=== PATIENT | male | born 1980 | race Caucasian/White ===

== ENCOUNTER 2017-05-27 17:30 | Emergency (ER) | payer OTHER ==
[2017-05-27 17:40] VITALS: RESP 16
[2017-05-27] MEDS ORDERED: NS 1,000 ML IV ONE (17:49)
--- NOTE | 2017-05-27 17:49 | EDPHY ---
H & P Stated Complaint: Lightheaded, weak and dizzy since yesterday Time Seen by Provider: 05/27/17 17:46 HPI/ROS: CHIEF COMPLAINT: Lightheadedness, sore throat, presyncope HISTORY OF PRESENT ILLNESS: The patient presents to the emergency department with lightheadedness, sore throat and presyncope. The patient has been struggling with an upper respiratory infection for the past several weeks. He reports symptoms of a mild dry cough. He currently denies any pleuritic chest pain or dyspnea. The patient complains of a mild sore throat. He did undergo 1 round of antibiotics several months ago. The patient denies any asymmetric calf pain or swelling. The patient denies significant past medical history. He denies any increasing stress or insomnia. The patient has no complaints of acute headache, numbness or weakness. REVIEW OF SYSTEMS: A comprehensive 10 point review of systems is otherwise negative aside from elements mentioned in the history of present illness. Source: Patient Exam Limitations: No limitations - Personal History Current Tetanus Diphtheria and Acellular Pertussis (TDAP): Unsure - Medical/Surgical History Hx Asthma: No Hx Chronic Respiratory Disease: No Hx Diabetes: No Hx Cardiac Disease: No Hx Renal Disease: No Hx Cirrhosis: No Hx Alcoholism: No Hx HIV/AIDS: No Hx Splenectomy or Spleen Trauma: No Other PMH: Denies - Social History Smoking Status: Never smoked - Physical Exam Exam: General Appearance: Alert, no distress Eyes: Pupils equal and round no pallor or injection ENT, Mouth: Mucous membranes moist Respiratory: There are no retractions, lungs are clear to auscultation Cardiovascular: Regular rate and rhythm Gastrointestinal: Abdomen is soft and nontender, no masses, bowel sounds normal Neurological: A&O, normal motor function, normal sensory exam, normal cranial nerves Skin: Warm and dry, no rashes Musculoskeletal: Neck is supple nontender Extremities: symmetrical, full range of motion Constitutional: Initial Vital Signs Temperature (C) 36.6 C 05/27/17 17:38 Heart Rate 87 05/27/17 17:38 Respiratory Rate 16 05/27/17 17:38 Blood Pressure 133/86 H 05/27/17 17:38 O2 Sat (%) 99 05/27/17 17:38 O2 Delivery Mode Room Air Allergies/Adverse Reactions: No Known Allergies Allergy (Unverified 05/27/17 17:40) Home Medications: Medication Instructions Recorded NK [No Known Home Meds] 05/27/17 Medical Decision Making - Diagnostics EKG Interpretation: EKG: Complete interpretation has been separately recorded in the [employer] archive. Summary impression: Sinus rhythm, rate 74 ED Course/Re-evaluation: The patient presents the ED with symptoms of presyncope in the setting of a recent recurrent upper respiratory infection. The patient's vital signs are stable. His EKG demonstrates no evidence of arrhythmia. The patient's electrolytes and CBC are within normal limits. The patient did have evidence of mild hypokalemia and received a L of normal saline. The patient does have evidence of mild pharyngeal erythema however his strep test is negative. At this point time I do feel the patient can be discharged home with instructions to continue conservative management and increase his IV fluid intake. The patient should return to the ED for markedly worsening symptoms, chest pain , difficulty breathing or other concerns. Differential Diagnosis: Differential diagnosis considered includes streptococcal pharyngitis, viral upper respiratory infection, metabolic abnormality, anemia - Data Points Laboratory Results: Laboratory Results 05/27/17 17:55 05/27/17 17:55 05/27/17 05/27/17 05/27/17 Unknown 17:55 17:55 WBC 5.24 10^3/uL 10^3/uL (3.80-9.50) RBC 5.10 10^6/uL 10^6/uL (4.40-6.38) Hgb 16.5 g/dL g/dL (13.7-17.5) Hct 48.0 % % (40.0-51.0) MCV 94.1 fL fL (81.5-99.8) MCH 32.4 pg pg (27.9-34.1) MCHC 34.4 g/dL g/dL (32.4-36.7) RDW 11.4 % L % (11.5-15.2) Plt Count 205 10^3/uL 10^3/uL (150-400) MPV 10.7 fL fL (8.7-11.7) Neut % (Auto) 58.7 % % (39.3-74.2) Lymph % (Auto) 29.6 % % (15.0-45.0) [place] % (Auto) 9.4 % % (4.5-13.0) Eos % (Auto) 1.1 % % (0.6-7.6) Baso % (Auto) 1.0 % % (0.3-1.7) Nucleat RBC Rel Count 0.0 % % (0.0-0.2) Absolute Neuts (auto) 3.08 10^3/uL 10^3/uL (1.70-6.50) Absolute Lymphs (auto) 1.55 10^3/uL 10^3/uL (1.00-3.00) Absolute Monos (auto) 0.49 10^3/uL 10^3/uL (0.30-0.80) Absolute Eos (auto) 0.06 10^3/uL 10^3/uL (0.03-0.40) Absolute Basos (auto) 0.05 10^3/uL 10^3/uL (0.02-0.10) Absolute Nucleated RBC 0.00 10^3/uL 10^3/uL (0-0.01) Immature Gran % 0.2 % % (0.0-1.1) Immature Gran # 0.01 10^3/uL 10^3/uL (0.00-0.10) Sodium 140 mEq/L mEq/L (134-144) Potassium 3.8 mEq/L mEq/L (3.5-5.2) Chloride 98 mEq/L mEq/L (97-110) Carbon Dioxide 28 mEq/l mEq/l (22-31) Anion Gap 14 mEq/L mEq/L (8-16) BUN 11 mg/dL mg/dL (7-23) Creatinine 0.9 mg/dL mg/dL (0.7-1.3) Estimated GFR > 60 Glucose 92 mg/dL mg/dL (70-100) Calcium 9.8 mg/dL mg/dL (8.5-10.4) Group A Strep Screen Group A Strep DNA Pending 05/27/17 17:55 WBC RBC Hgb Hct MCV MCH MCHC RDW Plt Count MPV Neut % (Auto) Lymph % (Auto) [place] % (Auto) Eos % (Auto) Baso % (Auto) Nucleat RBC Rel Count Absolute Neuts (auto) Absolute Lymphs (auto) Absolute Monos (auto) Absolute Eos (auto) Absolute Basos (auto) Absolute Nucleated RBC Immature Gran % Immature Gran # Sodium Potassium Chloride Carbon Dioxide Anion Gap BUN Creatinine Estimated GFR Glucose Calcium Group A Strep Screen NEGATIVE (NEGATIVE) Group A Strep DNA Medications Given: Discontinued Medications Sodium Chloride (Ns) 1,000 mls @ 0 mls/hr IV EDNOW ONE; Wide Open PRN Reason: Protocol Stop: 05/27/17 17:50 Last Admin: 05/27/17 18:01 Dose: 1,000 mls Departure - Departure Disposition: Home, Routine, Self-Care Clinical Impression: Dehydration, Pre-syncope Condition: Good Instructions: Hypotension (ED) Additional Instructions: 1. Your EKG demonstrates no evidence of any abnormality. 2. Your strep and laboratory studies are within normal limits. 3. Please increase your fluid intake as mild dehydration in the setting of a viral upper respiratory infection of may be contributing to your symptoms. 4. Please follow up with the experience designer you have been referred to for any ongoing intermittent mild symptoms. Referrals: Kelsy Li MD [Medical Doctor] - As per Instructions
[2017-05-27 18:34] LABS: % IMMATURE GRANULYOCYTES 0.2 % (0.0-1.1); ABSOLUTE IMMATURE GRANULOCYTES 0.01 10^3/uL (0.00-0.10); ADD DIFF? NO; ADD MORPH? NO; ADD SCAN? NO; ATYPICAL LYMPHOCYTE FLAG 20 (0-99); FRAGMENT RBC FLAG 0 (0-99); HEMOGLOBIN 16.5 g/dL (13.7-17.5); LEFT SHIFT FLG 0 (0-99); LIPEMIA HEMOLYSIS FLAG 90 (0-99); MEAN CELL HEMOGLOBIN 32.4 pg (27.9-34.1); MEAN CELL HEMOGLOBIN CONCENTR. 34.4 g/dL (32.4-36.7); MEAN CELL VOLUME 94.1 fL (81.5-99.8); MEAN PLATELET VOLUME 10.7 fL (8.7-11.7); PLATELET CLUMPS FLAG 0 (0-99); PLATELET COUNT 205 10^3/uL (150-400); RED CELL DISTRIBUTION WIDTH 11.4 % (11.5-15.2)
--- NOTE | 2017-05-27 18:42 | CPEKG ---
Heart Rate: 74 RR Interval: 811 P-R Interval: 156 QRSD Interval: 92 QT Interval: 396 QTC Interval: 440 P [place]: 58 QRS [place]: 43 T Wave [place]: 44 EKG Severity - NORMAL ECG - EKG Impression: SINUS RHYTHM Electronically Signed By: Cleve Hernandez 27-May-2017 19:33:24
[2017-05-27 18:44] LABS: ANION GAP 14 mEq/L (8-16); CALCIUM 9.8 mg/dL (8.5-10.4); CARBON DIOXIDE 28 mEq/l (22-31); CHLORIDE 98 mEq/L (97-110); CREATININE 0.9 mg/dL (0.7-1.3); GLOMERULAR FILTRATION RATE > 60; GLUCOSE 92 mg/dL (70-100); POTASSIUM 3.8 mEq/L (3.5-5.2); SODIUM 140 mEq/L (134-144)
[2017-05-27 19:24] VITALS: BP 128/77; PULSE 71; TEMP 98.4; O2SAT 97
== END 2017-05-27 19:24 | disposition home or self-care (01) ==
DX: E86.0 Dehydration (principal); R55 Syncope and collapse; E86.9 Volume depletion, unspecified